=== PATIENT | female | born 1975 | race Caucasian/White ===

== ENCOUNTER → 2017-01-04 | Outpatient (CLI) | payer BC ==
[2017-01-04 10:42] LABS: CH 32.9; CHCM 35.3; HCT 41.7 % (34.0-46.0); HDW 2.72; HGB 14.2 gm/dL (11.4-16.0); MCH 31.8 pg (25.0-35.0); MCHC 34.1 g/dL (31.0-37.0); MCV 93.5 fL (80.0-100.0); Mean Platelet Volume 6.6; RBC 4.46 m/uL (3.80-5.40); RDW 12.6 % (11.5-15.5); WBC 6.4 k/uL (3.8-10.6)
[2017-01-04 11:13] LABS: ALT 37 U/L (9-52); AST 25 U/L (14-36); Alkaline Phosphatase 88 U/L (38-126); Anion Gap 9 mmol/L; Blood Urea Nitrogen 11 mg/dL (7-17); Calcium 9.2 mg/dL (8.4-10.2); Carbon Dioxide 23 mmol/L (22-30); Chloride 109 mmol/L (98-107); Cholesterol 177 mg/dL (<200); Glucose 88 mg/dL (74-99); HDL Cholesterol 54 mg/dL (40-60); Non-African American GFR(MDRD) >60 (>60 ml/min/1.73 sqM); Sodium 141 mmol/L (137-145); Total Bilirubin 0.8 mg/dL (0.2-1.3); Total Protein 7.2 g/dL (6.3-8.2); Triglycerides 165 mg/dL (<150)
== END ==
LOC: LABWHC1 09:50
PROVIDERS: ATTEND Physician Assistant Medical
DX: E03.9 Hypothyroidism, unspecified (principal); E55.9 Vitamin D deficiency, unspecified
CPT/HCPCS: 36415; 80053; 80061; 82306; 84439; 84443; 85027

== ENCOUNTER → 2017-01-08 | Outpatient (CLI) | payer BC ==
--- NOTE | 2017-01-09 12:55 | MM ---
Reason for exam: screening (asymptomatic). Last mammogram was performed 1 year and 6 months ago. History: Excisional biopsy of the right breast. Took hormonal contraceptives for 4 years. Physical Findings: A clinical breast exam by your physician is recommended on an annual basis and results should be correlated with mammographic findings. MG Screening Mammo w CAD Bilateral CC, MLO, and XCCL view(s) were taken. Prior study comparison: July 12, 2015, bilateral MG screening mammo w CAD. The breast tissue is extremely dense which could obscure a lesion on mammography. Stable distortion in the right CC view. No significant changes when compared with prior studies. ASSESSMENT: Benign, BI-RAD 2 RECOMMENDATION: Routine screening mammogram of both breasts in 1 year.
== END | disposition home or self-care (01) ==
LOC: RADMAMWWP 15:33
PROVIDERS: ATTEND Family Medicine
DX: Z12.31 Encounter for screening mammogram for malignant neoplasm of breast (principal)

== ENCOUNTER → 2017-07-30 | Outpatient (CLI) | payer BC ==
--- NOTE | 2017-07-30 10:59 | USB ---
Reason for exam: clinical finding. History: Excisional biopsy of the right breast. Took hormonal contraceptives for 4 years. Indicated problem(s): pain in both breasts. Physical Findings: Nurse did not find any significant physical abnormalities on exam. US Breast BILAT Right breast ultrasound includes all four quadrants, the retroareolar region and axilla. Finding demonstrates a 0.5 x 0.3 x 0.2cm oval, mixed lesion at 3 o'clock, a 0.7 x 0.4 x 0.3cm oval, mixed lesion at 3 o'clock (probably benign), a 0.5 x 0.4 x 0.2cm oval, mixed lesion at 10 o'clock, a 0.6 x 0.5 x 0.4cm oval, mixed lesion at 10 o'clock, a 0.4 x 0.5 x 0.3cm oval, mixed lesion at 10 o'clock and a 0.6 x 0.7 x 0.4cm oval, cystic lesion at 11 o'clock. Left breast ultrasound includes all four quadrants, the retroareolar region and axilla. Finding demonstrates a 0.4 x 0.5 x 0.2cm oval, cystic lesion at 12 o'clock, a 1.1 x 0.5 x 0.3cm oval, cystic cluster at 1 o'clock, a 0.3 x 0.4 x 0.3cm oval, cystic lesion at 1 o'clock, a 0.5 x 0.7 x 0.4cm oval, mixed cluster at 4 o'clock, a 0.4 x 0.6 x 0.2cm oval, mixed lesion at 6 o'clock, a 0.3 x 0.6 x 0.3cm oval, mixed lesion at 9 o'clock, a 0.5 x 0.6 x 0.3cm cystic lesion at 11 o'clock and ductal ectasia. The remaining masses are cystic and benign in both breasts. These results were verbally communicated with the patient and result sheet given to the patient on 07/30/17. ASSESSMENT: Probably benign, BI-RAD 3 RECOMMENDATION: Ultrasound of the right breast in 6 months. (3 o'clock)
== END | disposition home or self-care (01) ==
LOC: RADUSWWP 08:55
PROVIDERS: ATTEND Family Medicine
DX: N64.4 Mastodynia (principal); N63.0 Unspecified lump in unspecified breast

== ENCOUNTER → 2017-08-21 | Outpatient (CLI) | payer OTHER ==
--- NOTE | 2017-08-21 14:33 | XR ---
EXAMINATION TYPE: XR ankle complete LT, XR foot complete LT DATE OF EXAM: 08/21/2017 CLINICAL HISTORY: Contusion injury with pain. TECHNIQUE: Frontal, lateral and oblique images of the left ankle and foot are obtained. COMPARISON: None. FINDINGS: There is no acute fracture/dislocation evident in the left ankle. The ankle mortise appea rs within normal limits. Tiny spur medial malleolus is seen. Tubular density medial soft tissue is fe lt to reflect varicose vein. Mild to moderate diffuse subcutaneous edema is present. There is no acute fracture or dislocation evident in the left foot. Moderate to large size inferior c alcaneal spur is present. Flexion in the third through fifth toes is seen. Overlying soft tissue is u nremarkable. IMPRESSION: There is no acute fracture or dislocation in the left ankle or foot.
== END | disposition home or self-care (01) ==
LOC: RADXRMAIN 14:08
PROVIDERS: ATTEND Emergency Medicine
DX: S90.02XA Contusion of left ankle, initial encounter (principal); S90.32XA Contusion of left foot, initial encounter

== ENCOUNTER → 2018-01-15 | Outpatient (CLI) | payer BC ==
[2018-01-15 09:14] LABS: ALT 36 U/L (9-52); AST 22 U/L (14-36); Alkaline Phosphatase 78 U/L (38-126); Anion Gap 10 mmol/L; Blood Urea Nitrogen 14 mg/dL (7-17); Calcium 9.3 mg/dL (8.4-10.2); Carbon Dioxide 24 mmol/L (22-30); Chloride 105 mmol/L (98-107); Glucose 85 mg/dL (74-99); Potassium 4.4 mmol/L (3.5-5.1); Sodium 139 mmol/L (137-145); Total Bilirubin 0.5 mg/dL (0.2-1.3); Total Protein 6.5 g/dL (6.3-8.2); Uric Acid 3.3 mg/dL (3.7-7.4)
[2018-01-15 09:27] LABS: T4, Free (Free Thyroxine) 0.95 ng/dL (0.78-2.19)
== END | disposition home or self-care (01) ==
LOC: LABWHC1 07:59
PROVIDERS: ATTEND Family Medicine
DX: E03.9 Hypothyroidism, unspecified (principal)
CPT/HCPCS: 36415; 80053; 84439; 84443; 84550

== ENCOUNTER → 2018-02-05 | Outpatient (CLI) | payer BC ==
--- NOTE | 2018-02-05 12:03 | MM ---
Reason for exam: screening (asymptomatic). Last mammogram was performed 1 year and 1 month ago. History: Excisional biopsy of the right breast. Took hormonal contraceptives for 4 years. MG 3D Screening Mammo W/Cad Bilateral CC and MLO view(s) were taken. Technologist: RT Elinor (R)(M) Prior study comparison: January 08, 2017, bilateral MG screening mammo w CAD. July 12, 2015, bilateral MG screening mammo w CAD. The breast tissue is heterogeneously dense. This may lower the sensitivity of mammography. Stable architectural distortion right CC view from prior excision. No significant new findings when compared with previous films. These results were verbally communicated with the patient and result sheet given to the patient on 02/05/18. ASSESSMENT: Incomplete: need additional imaging evaluation, BI-RAD 0 RECOMMENDATION: Ultrasound of the right breast. (follow up from 6 months ago)
--- NOTE | 2018-02-05 12:07 | USB ---
Reason for exam: follow-up at short interval from prior study. History: Excisional biopsy of the right breast. Took hormonal contraceptives for 4 years. Physical Findings: Nurse Summary: Patient complains of intermittent bilateral beast pain x 1 year (nurse mj). US Breast RT Right complete breast ultrasound includes all four quadrants, the retroareolar region and axilla. Finding demonstrates a 0.5 x 0.6 x 0.3cm cystic lesion at 5 o'clock and a 0.6 x 0.5 x 0.4cm mixed lesion at 8 o'clock, not clearly seen previously on 07/30/17, 6 month follow up recommended. It may correspond to a finding at the 10 o'clock position. The previously questioned 3 o'clock lesion is no longer seen. These results were verbally communicated with the patient and result sheet given to the patient on 02/05/18. ASSESSMENT: Probably benign, BI-RAD 3 RECOMMENDATION: Ultrasound of the right breast in 6 months. (for the 8 o'clock mixed lesion)
== END | disposition home or self-care (01) ==
LOC: RADUSWWP 09:49
PROVIDERS: ATTEND Family Medicine
DX: Z12.31 Encounter for screening mammogram for malignant neoplasm of breast (principal); N64.4 Mastodynia
CPT/HCPCS: 77063; 77067

== ENCOUNTER → 2018-08-22 | Outpatient (CLI) | payer BC ==
[2018-08-22 09:52] LABS: Basophils % (A) 0 %; Eosinophils # (A) 0.3 k/uL (0-0.7); Eosinophils % (A) 4 %; HCT 39.8 % (34.0-46.0); HGB 13.5 gm/dL (11.4-16.0); Lymphocytes # (A) 1.8 k/uL (1.0-4.8); Lymphocytes % (A) 27 %; MCH 31.4 pg (25.0-35.0); MCHC 33.8 g/dL (31.0-37.0); MCV 92.8 fL (80.0-100.0); Mean Platelet Volume 7.3; Monocytes # (A) 0.4 k/uL (0-1.0); Monocytes % (A) 7 %; Neutrophils # (A) 3.9 k/uL (1.3-7.7); Neutrophils % (A) 59 %; Platelet Count 212 k/uL (150-450); RBC 4.28 m/uL (3.80-5.40); RDW 12.5 % (11.5-15.5); WBC 6.5 k/uL (3.8-10.6)
[2018-08-22 16:13] LABS: Albumin/Globulin Ratio 2.11 (1.20-2.10); Anion Gap 6.3 mmol/L (4.00-12.00); Calcium 8.9 mg/dL (8.7-10.3); Carbon Dioxide 26.7 mmol/L (21.6-31.8); Globulin 1.9 g/dL (1.6-3.3); LDL Cholesterol,Calculated 64.8 mg/dL (0.0-131.0); Potassium 4.4 mmol/L (3.5-5.5); Total Bilirubin 0.4 mg/dL (0.2-1.2); Total Protein 5.9 g/dL (6.2-8.2); VLDL Calculation 24.2 mg/dL (5.00-40.00)
[2018-08-22 16:22] LABS: T4, Free (Free Thyroxine) 1.2 ng/dL (0.80-1.80)
== END ==
LOC: LABWHC1 09:14
PROVIDERS: ATTEND Family Medicine
DX: E03.9 Hypothyroidism, unspecified (principal)
CPT/HCPCS: 36415; 80053; 80061; 84439; 84443; 85025

== ENCOUNTER → 2018-09-03 | Outpatient (CLI) | payer BC ==
--- NOTE | 2018-09-03 14:57 | US ---
EXAMINATION TYPE: US venous doppler duplex LE DATE OF EXAM: 09/03/2018 2:44 PM COMPARISON: NONE CLINICAL HISTORY: R60.0 EDEMA. Edema and discoloration bilateral lower legs. Varicose veins SIDE PERFORMED: bilateral TECHNIQUE: The lower extremity deep venous system is examined utilizing real time linear array sonog ty with graded compression, doppler sonography and color-flow sonography. VESSELS IMAGED: External Iliac Vein (EIV) Common Femoral Vein Deep Femoral Vein Greater Saphenous Vein * Femoral Vein Popliteal Vein Small Saphenous Vein * Proximal Calf Veins (* superficial vessels) Right Leg: No evidence of DVT Left Leg: No evidence of DVT IMPRESSION: No evidence for DVT at this time.
--- NOTE | 2018-09-04 08:55 | USB ---
Reason for exam: follow-up at short interval from prior study. History: Excisional biopsy of the right breast. Took hormonal contraceptives for 4 years. Physical Findings: Nurse Summary: Patient complains of intermittent bilateral breast pain, nodular, movable (nurse mj). US Breast RT Right complete breast ultrasound includes all four quadrants, the retroareolar region and axilla. Finding demonstrates a 0.3 x 0.3 x 0.7cm cystic lesion at 12 o'clock, a 0.4 x 0.2 x 0.5cm cystic lesion at 5 o'clock and a 0.6 x 0.3 x 0.4cm mixed lesion at 8 o'clock. These results were verbally communicated with the patient and result sheet given to the patient on 09/03/18. ASSESSMENT: Probably benign, BI-RAD 3 RECOMMENDATION: Follow-up diagnostic mammogram of both breasts in 6 months. Ultrasound of the right breast in 6 months.
== END | disposition home or self-care (01) ==
LOC: RADUSWWP 14:13
PROVIDERS: ATTEND Family Medicine
DX: R60.0 Localized edema (principal); R23.4 Changes in skin texture
CPT/HCPCS: 93970

== ENCOUNTER → 2019-05-01 | Outpatient (CLI) | payer BC ==
--- NOTE | 2019-05-01 14:53 | MM ---
Reason for exam: additional evaluation requested from prior study. Last mammogram was performed 1 year and 3 months ago. History: Excisional biopsy of the right breast. Took hormonal contraceptives for 4 years. Physical Findings: Nurse did not find any significant physical abnormalities on exam. MG 3D Diag Mammo W/Cad WEN Bilateral CC and MLO view(s) were taken. Prior study comparison: February 05, 2018, bilateral MG 3d screening mammo w/cad. January 08, 2017, bilateral MG screening mammo w CAD. The breast tissue is heterogeneously dense. This may lower the sensitivity of mammography. No suspicious abnormality. Post surgical change on the right. These results were verbally communicated with the patient and result sheet given to the patient on 05/01/19. ASSESSMENT: Benign, BI-RAD 2 RECOMMENDATION: Follow-up diagnostic mammogram of both breasts in 1 year.
--- NOTE | 2019-05-01 14:56 | USB ---
Reason for exam: additional evaluation requested from prior study. History: Excisional biopsy of the right breast. Took hormonal contraceptives for 4 years. US Breast RT Right complete breast ultrasound includes all four quadrants, the retroareolar region and axilla. Finding demonstrates a 0.5 x 0.3 x 0.6cm cystic lesion at 12 o'clock (prior 0.6 x 0.3 x 0.7cm), a 0.4 x 0.3 x 0.4cm cystic lesion at 1 o'clock, new from most recent but seen on 07/30/17, similar in size, a 0.6 x 0.3 x 0.6cm cystic, new lesion at 4 o'clock, a 0.4 x 0.3 x 0.5cm cystic lesion at 5 o'clock (prior 0.4 x 0.2 x 0.5cm) and a 0.4 x 0.3 x 0.4cm lesion too small to characterize at 8 o'clock. These results were verbally communicated with the patient and result sheet given to the patient on 05/01/19. ASSESSMENT: Probably benign, BI-RAD 3 RECOMMENDATION: Ultrasound of the right breast in 1 year.
== END | disposition home or self-care (01) ==
LOC: RADMAMWWP 07:30
PROVIDERS: ATTEND Family Medicine
DX: R92.8 Other abnormal and inconclusive findings on diagnostic imaging of breast (principal); N64.4 Mastodynia
CPT/HCPCS: 77062; 77066

== ENCOUNTER → 2020-08-04 | Outpatient (CLI) | payer BC ==
--- NOTE | 2020-08-05 11:20 | MM ---
Reason for exam: additional evaluation requested from prior study. Last mammogram was performed 1 year and 3 months ago. History: Excisional biopsy of the right breast. Took hormonal contraceptives for 4 years. Physical Findings: Nurse did not find any significant physical abnormalities on exam. MG 3D Diag Mammo W/Cad WEN Bilateral CC and MLO view(s) were taken. Prior study comparison: May 01, 2019, bilateral MG 3d diag mammo w/cad WEN. February 05, 2018, bilateral MG 3d screening mammo w/cad. January 08, 2017, bilateral MG screening mammo w CAD. The breast tissue is extremely dense which could obscure a lesion on mammography. No significant new findings when compared with previous films. These results were verbally communicated with the patient and result sheet given to the patient on 08/04/20. ASSESSMENT: Benign, BI-RAD 2 RECOMMENDATION: Routine screening mammogram of both breasts in 1 year.
--- NOTE | 2020-08-05 11:21 | USB ---
Reason for exam: additional evaluation requested from prior study. History: Excisional biopsy of the right breast. Took hormonal contraceptives for 4 years. US Breast RT Right complete breast ultrasound includes all four quadrants, the retroareolar region and axilla. Finding demonstrates three oval, cystic lesions measuring 4 x 3 x 6mm at 12 o'clock, 4 x 2 x 4mm at 2 o'clock and 6 x 4 x 6mm at 9 o'clock. These results were verbally communicated with the patient and result sheet given to the patient on 08/04/20. ASSESSMENT: Benign, BI-RAD 2 RECOMMENDATION: Routine screening mammogram of both breasts in 1 year.
== END | disposition home or self-care (01) ==
LOC: RADMAMWWP 14:19
PROVIDERS: ATTEND Family Medicine
DX: N63.10 Unspecified lump in the right breast, unspecified quadrant (principal); R92.0 Mammographic microcalcification found on diagnostic imaging of breast; R92.8 Other abnormal and inconclusive findings on diagnostic imaging of breast
CPT/HCPCS: 77062; 77066

== ENCOUNTER → 2021-01-05 | Outpatient (CLI) | payer BC ==
[2021-01-05 15:56] LABS: HCT 40.2 % (37.2-46.3); HGB 13.2 g/dL (12.0-15.0); MCH 30.8 pg (27.0-32.0); MCHC 32.8 g/dL (32.0-37.0); MCV 93.9 fL (80.0-97.0); Platelet Count 194 X 10*3/uL (140-440); RBC 4.28 X 10*6/uL (4.10-5.20); RDW 12.6 % (11.5-14.5); WBC 4.87 X 10*3/uL (4.50-10.00)
[2021-01-05 18:33] LABS: African American GFR (CKD) 126.7 (60.0-200.0); Albumin 4.1 g/dL (3.80-4.90); Albumin/Globulin Ratio 1.78 (1.60-3.17); Anion Gap 7.5 mmol/L (4.00-12.00); BUN/Creat Ratio 23.33 Ratio (12.00-20.00); Calcium 8.5 mg/dL (8.7-10.3); Carbon Dioxide 20.5 mmol/L (21.6-31.8); Chol/HDL Ratio 3.49; Globulin 2.3 g/dL (1.6-3.3); LDL Cholesterol,Calculated 85.6 mg/dL (0.0-131.0); Non-African American GFR(CKD) 109.3 (60.0-200.0); Potassium 4.2 mmol/L (3.5-5.5); Total Bilirubin 0.4 mg/dL (0.3-1.2); Total Protein 6.4 g/dL (6.2-8.2); VLDL Calculation 21.4 mg/dL (5.00-40.00)
== END | disposition home or self-care (01) ==
LOC: LABWHC1 08:22
PROVIDERS: ATTEND Family Medicine
DX: E03.9 Hypothyroidism, unspecified (principal); M79.7 Fibromyalgia; E66.3 Overweight
CPT/HCPCS: 36415; 80053; 80061; 84443; 85027

== ENCOUNTER → 2021-05-11 | Outpatient (CLI) | payer BC ==
[2021-05-11 23:54] LABS: HCT 39.1 % (37.2-46.3); HGB 13.5 g/dL (12.0-15.0); MCH 31.5 pg (27.0-32.0); MCHC 34.5 g/dL (32.0-37.0); MCV 91.4 fL (80.0-97.0); Mean Platelet Volume 10.3 fL (9.5-12.2); Platelet Count 233 X 10*3/uL (140-440); RBC 4.28 X 10*6/uL (4.10-5.20); RDW 12.1 % (11.5-14.5)
[2021-05-12 05:24] LABS: African American GFR (CKD) 104.9 (60.0-200.0); Albumin 4.4 g/dL (3.8-4.9); Albumin/Globulin Ratio 1.96 (1.60-3.17); Anion Gap 18.5 mmol/L (4.00-12.00); BUN/Creat Ratio 18.85 Ratio (12.00-20.00); Blood Urea Nitrogen 14.7 mg/dL (9.0-27.0); Calcium 9.4 mg/dL (8.7-10.3); Carbon Dioxide 15.5 mmol/L (21.6-31.8); Globulin 2.3 g/dL (1.6-3.3); Non-African American GFR(CKD) 90.5 (60.0-200.0); Potassium 4.2 mmol/L (3.5-5.5); T4, Free (Free Thyroxine) 1.55 ng/dL (0.800-1.800); Total Bilirubin 0.3 mg/dL (0.30-1.20); Total Protein 6.7 g/dL (6.2-8.2)
== END | disposition home or self-care (01) ==
LOC: LABWHC1 15:52
PROVIDERS: ATTEND Family Medicine
DX: E03.9 Hypothyroidism, unspecified (principal); M79.7 Fibromyalgia
CPT/HCPCS: 36415; 80053; 84439; 84443; 84480; 85027

== ENCOUNTER 2021-09-22 22:52 | Emergency (ER) | payer BC ==
[2021-09-22] MEDS ORDERED: IBUPROFEN 800 MG TAB PO STA (23:30)
[2021-09-22] MEDS ORDERED: ACETAMINOPHEN TAB 500 MG TAB PO STA (23:30)
[2021-09-22] MEDS ORDERED: ONDANSETRON 4 MG/2 ML VIAL IVP STA (23:30)
[2021-09-22] MEDS ORDERED: SODIUM CHLORIDE 0.9% 1,000 ML IV STA ×2 (23:30)
[2021-09-22] MEDS ORDERED: HYDROmorphone 1 MG/ML 1 ML SYRINGE IVP STA (23:31)
--- NOTE | 2021-09-23 00:18 | ED ---
Abdominal Pain HPI - General Chief Complaint: Abdominal Pain Stated Complaint: rash on leg, abdominal pain Time Seen by Provider: 09/22/21 23:30 Source: patient, family, RN notes reviewed, old records reviewed Mode of arrival: ambulatory Limitations: no limitations - History of Present Illness Initial Comments: This is a 46-year-old female DEL with multiple complaints abdominal pain some nausea no vomiting abdominal pain to her back as well as right lower extremity pain and swelling erythema edema and drainage. Patient believes it down pain feels a prior episodes of pancreatitis. Patient has presenting to the ER with fever as well. MD Complaint: abdominal pain, other (Right leg pain secondary to rash) -: days(s) (2) Location: diffuse Radiation: LUQ, RUQ, epigastric Migration to: bilateral flank Severity: moderate Severity scale (1-10): 5 Quality: fullness, sharp Consistency: constant Improves With: nothing Worsens With: nothing Context: other (none) Associated Symptoms: nausea Treatments Prior to Arrival: other (none) - Related Data Home Medications Medication Instructions Recorded Confirmed Levothyroxine Sodium [Synthroid] 112 mcg PO DAILY 07/13/15 09/22/15 Previous Rx's Medication Instructions Recorded Cephalexin [Keflex] 500 mg PO Q6HR #40 cap 09/23/21 Allergies Allergy/AdvReac Type Severity Reaction Status Date / Time meperidine HCl [From Demerol] Allergy Rash/Hives Verified 09/22/21 23:01 milk Allergy Unknown Verified 09/22/21 23:01 morphine Allergy Unknown Verified 09/22/21 23:01 Penicillins Allergy throat Verified 09/22/21 23:01 Swelling Review of Systems ROS Statement: Those systems with pertinent positive or pertinent negative responses have been documented in the HPI. ROS Other: All systems not noted in ROS Statement are negative. Past Medical History Past Medical History: No Reported History Additional Past Medical History / Comment(s): pancreatitis, skin problem left lower leg History of Any Multi-Drug Resistant Organisms: None Reported Additional Past Surgical History / Comment(s): surgery on pancreas(sphincter of Oddi), deviated septum/removal of cysts, breast biopsy, [facility] PROCEDURE 07/19/15 Past Anesthesia/Blood Transfusion Reactions: Motion Sickness Past Psychological History: No Psychological Hx Reported Smoking Status: Never smoker Past Alcohol Use History: None Reported Past Drug Use History: None Reported General Exam Limitations: no limitations General appearance: alert, in no apparent distress, anxious Head exam: Present: atraumatic, normocephalic, normal inspection Eye exam: Present: normal appearance, PERRL, EOMI. Absent: scleral icterus, conjunctival injection, periorbital swelling ENT exam: Present: normal exam, mucous membranes moist Neck exam: Present: normal inspection. Absent: tenderness, meningismus, lymphadenopathy Respiratory exam: Present: normal lung sounds bilaterally. Absent: respiratory distress, wheezes, rales, rhonchi, stridor Cardiovascular Exam: Present: normal rhythm, tachycardia, normal heart sounds. Absent: systolic murmur, diastolic murmur, rubs, gallop, clicks GI/Abdominal exam: Present: soft, tenderness, guarding, normal bowel sounds. Absent: distended, rebound, rigid Extremities exam: Present: normal inspection, full ROM, normal capillary refill. Absent: tenderness, pedal edema, joint swelling, calf tenderness Back exam: Present: normal inspection Neurological exam: Present: alert, oriented X3, CN II-XII intact Psychiatric exam: Present: normal affect, normal mood Skin exam: Present: warm, dry, intact, normal color. Absent: rash Course Vital Signs 09/22/21 22:58 Temperature 101 F H Pulse Rate 117 H Respiratory 22 Rate Blood Pressure 114/73 O2 Sat by Pulse 98 Oximetry - Reevaluation(s) Reevaluation #1: 09/23/21 03:22 Medical record is reviewed Reevaluation #2: 09/23/21 03:37 Patient informed results and questions have been answered Reevaluation #3: 09/23/21 03:37 Patient states of dull pain is coming back a little she feels improved and would like to go home Medical Decision Making - Medical Decision Making 46 female to the emergency. Patient coming in with complaints of abdominal pain right lower extremity swelling redness and then. Edema. Patient has pain in that right lower extremity with significant cellulitis drainage, patient replacement antibiotics encouraged wound care and fever control. Abdominal pain no cause found currently and patient can be discharged home - Lab Data Result diagrams: 09/23/21 00:49 09/23/21 00:49 Lab Results 09/23/21 09/23/21 09/23/21 Range/Units 00:49 00:49 00:49 WBC 4.2 (3.8-10.6) k/uL RBC 4.25 (3.80-5.40) m/uL Hgb 13.6 (11.4-16.0) gm/dL Hct 38.8 (34.0-46.0) % MCV 91.2 (80.0-100.0) fL MCH 31.9 (25.0-35.0) pg MCHC 35.0 (31.0-37.0) g/dL RDW 12.8 (11.5-15.5) % Plt Count 228 (150-450) k/uL MPV 7.1 Neutrophils % 69 % Lymphocytes % 13 % Monocytes % 13 % Eosinophils % 1 % Basophils % 0 % Neutrophils # 2.9 (1.3-7.7) k/uL Lymphocytes # 0.6 L (1.0-4.8) k/uL Monocytes # 0.6 (0-1.0) k/uL Eosinophils # 0.1 (0-0.7) k/uL Basophils # 0.0 (0-0.2) k/uL PT 10.0 (9.0-12.0) sec INR 0.9 (<1.2) APTT 24.7 (22.0-30.0) sec Sodium 135 L (137-145) mmol/L Potassium 3.9 (3.5-5.1) mmol/L Chloride 104 (98-107) mmol/L Carbon Dioxide 22 (22-30) mmol/L Anion Gap 9 mmol/L BUN 15 (7-17) mg/dL Creatinine 0.61 (0.52-1.04) mg/dL Est GFR (CKD-EPI)AfAm >90 (>60 ml/min/1.73 sqM) Est GFR (CKD-EPI)NonAf >90 (>60 ml/min/1.73 sqM) Glucose 120 H (74-99) mg/dL Calcium 8.2 L (8.4-10.2) mg/dL Total Bilirubin 1.1 (0.2-1.3) mg/dL AST 33 (14-36) U/L ALT 22 (4-34) U/L Alkaline Phosphatase 76 (38-126) U/L Total Protein 6.3 (6.3-8.2) g/dL Albumin 3.6 (3.5-5.0) g/dL Amylase 36 (30-110) U/L Lipase 26 (23-300) U/L Urine Color Urine Appearance (Clear) Urine pH (5.0-8.0) Ur Specific Stafford (1.001-1.035) Urine Protein (Negative) Urine Glucose (UA) (Negative) Urine Ketones (Negative) Urine Blood (Negative) Urine Nitrite (Negative) Urine Bilirubin (Negative) Urine Urobilinogen (<2.0) mg/dL Ur Leukocyte Esterase (Negative) Urine WBC (0-5) /hpf Ur Squamous Epith Cells (0-4) /hpf Amorphous Sediment (None) /hpf Urine Bacteria (None) /hpf Urine Mucus (None) /hpf 09/23/21 Range/Units 01:28 WBC (3.8-10.6) k/uL RBC (3.80-5.40) m/uL Hgb (11.4-16.0) gm/dL Hct (34.0-46.0) % MCV (80.0-100.0) fL MCH (25.0-35.0) pg MCHC (31.0-37.0) g/dL RDW (11.5-15.5) % Plt Count (150-450) k/uL MPV Neutrophils % % Lymphocytes % % Monocytes % % Eosinophils % % Basophils % % Neutrophils # (1.3-7.7) k/uL Lymphocytes # (1.0-4.8) k/uL Monocytes # (0-1.0) k/uL Eosinophils # (0-0.7) k/uL Basophils # (0-0.2) k/uL PT (9.0-12.0) sec INR (<1.2) APTT (22.0-30.0) sec Sodium (137-145) mmol/L Potassium (3.5-5.1) mmol/L Chloride (98-107) mmol/L Carbon Dioxide (22-30) mmol/L Anion Gap mmol/L BUN (7-17) mg/dL Creatinine (0.52-1.04) mg/dL Est GFR (CKD-EPI)AfAm (>60 ml/min/1.73 sqM) Est GFR (CKD-EPI)NonAf (>60 ml/min/1.73 sqM) Glucose (74-99) mg/dL Calcium (8.4-10.2) mg/dL Total Bilirubin (0.2-1.3) mg/dL AST (14-36) U/L ALT (4-34) U/L Alkaline Phosphatase (38-126) U/L Total Protein (6.3-8.2) g/dL Albumin (3.5-5.0) g/dL Amylase (30-110) U/L Lipase (23-300) U/L Urine Color Yellow Urine Appearance Cloudy H (Clear) Urine pH 5.5 (5.0-8.0) Ur Specific Stafford 1.048 H (1.001-1.035) Urine Protein 1+ H (Negative) Urine Glucose (UA) Negative (Negative) Urine Ketones Negative (Negative) Urine Blood Negative (Negative) Urine Nitrite Negative (Negative) Urine Bilirubin Negative (Negative) Urine Urobilinogen <2.0 (<2.0) mg/dL Ur Leukocyte Esterase Negative (Negative) Urine WBC 3 (0-5) /hpf Ur Squamous Epith Cells 6 H (0-4) /hpf Amorphous Sediment Occasional H (None) /hpf Urine Bacteria Rare H (None) /hpf Urine Mucus Moderate H (None) /hpf - Radiology Data Radiology results: report reviewed (CT of the abdomen and pelvis is negative for acute disease), image reviewed Disposition Clinical Impression: Cellulitis of right leg, Fever, Abdominal colic Disposition: ADMITTED IP TO THIS [facility] Condition: Good Instructions (If sedation given, give patient instructions): Fever in Adults (ED), Cellulitis (ED), Abdominal Pain (ED) Prescriptions: Cephalexin [Keflex] 500 mg PO Q6HR #40 cap Is patient prescribed a controlled substance at d/c from ED?: No Referrals: Chito Witt MD [Primary Care Provider] - 1-2 days
[2021-09-23 01:24] LABS: ALT 22 U/L (4-34); African American GFR (CKD) >90 (>60 ml/min/1.73 sqM); Albumin 3.6 g/dL (3.5-5.0); Amylase 36 U/L (30-110); Anion Gap 9 mmol/L; Blood Urea Nitrogen 15 mg/dL (7-17); Calcium 8.2 mg/dL (8.4-10.2); Carbon Dioxide 22 mmol/L (22-30); Chloride 104 mmol/L (98-107); Glucose 120 mg/dL (74-99); Lipase 26 U/L (23-300); Non-African American GFR(CKD) >90 (>60 ml/min/1.73 sqM); Sodium 135 mmol/L (137-145); Total Bilirubin 1.1 mg/dL (0.2-1.3); Total Protein 6.3 g/dL (6.3-8.2)
[2021-09-23 01:25] LABS: AST 33 U/L (14-36); Alkaline Phosphatase 76 U/L (38-126); Potassium 3.9 mmol/L (3.5-5.1)
[2021-09-23 01:35] LABS: INR 0.9 (<1.2); Partial Thromboplastin Time 24.7 sec (22.0-30.0)
[2021-09-23 01:41] LABS: Basophils % (A) 0 %; Eosinophils # (A) 0.1 k/uL (0-0.7); Eosinophils % (A) 1 %; HCT 38.8 % (34.0-46.0); HGB 13.6 gm/dL (11.4-16.0); Lymphocytes # (A) 0.6 k/uL (1.0-4.8); Lymphocytes % (A) 13 %; MCH 31.9 pg (25.0-35.0); MCV 91.2 fL (80.0-100.0); Mean Platelet Volume 7.1; Monocytes # (A) 0.6 k/uL (0-1.0); Monocytes % (A) 13 %; Neutrophils # (A) 2.9 k/uL (1.3-7.7); Neutrophils % (A) 69 %; Platelet Count 228 k/uL (150-450); RBC 4.25 m/uL (3.80-5.40); RDW 12.8 % (11.5-15.5); WBC 4.2 k/uL (3.8-10.6)
--- NOTE | 2021-09-23 01:46 | CT ---
EXAMINATION TYPE: CT abdomen pelvis w con DATE OF EXAM: 09/23/2021 COMPARISON: None HISTORY: generalized abdominal pain CT DLP: 1158.3 mGycm Automated exposure control for dose reduction was used. CONTRAST: Performed with IV Contrast, patient injected with 100ml mL of Isovue 300. Images obtained from the diaphragm to the floor the pelvis with IV contrast. The lung bases are clear. There is no pleural effusion. Heart size is normal. There is no pericardial effusion. There is 1.5 cm cyst anterior liver. There are other smaller cysts less than 1 cm. There are clips fr om cholecystectomy. Spleen appears normal. The stomach is intact. There is no evidence of pancreatic mass. There is no adrenal mass. Kidneys show satisfactory contrast opacification. There is no hydronephrosi s. Ureters are not dilated. There is no retroperitoneal adenopathy. Uterus is anteverted. Bladder dis tends smoothly. There is no inguinal hernia. There is no free fluid in the pelvis. There is no pelvic mass. Appendix is posterior and appears normal. There is large bowel fluid down to the rectum. There is no mesenteric edema. There is no ascites or free air. There is no bowel obstruction. The lumbar vertebrae have normal alignment. Disc spaces are normal. There is no compression fracture. The bony pelvis appears intact. The hip joints are intact. IMPRESSION: There are small hepatic cysts. No dilated ducts. Normal appendix. There is large bowel flow down to the rectum that is suggestive of some degree of diarrhea.
[2021-09-23 02:35] LABS: Amorphous Sediment,Urine Occasional /hpf; Appearance,Urine Cloudy (Clear); Bacteria,Urine Rare /hpf; Bilirubin,Urine Negative (Negative); Blood,Urine Negative (Negative); Color,Urine Yellow; Glucose,Urine (UA) Negative (Negative); Ketones,Urine Negative (Negative); Leukocyte Esterase,Urine Negative (Negative); Mucus,Urine Moderate /hpf; Nitrite,Urine Negative (Negative); PH, Urine 5.5 (5.0-8.0); Protein,Urine 1+ (Negative); Squamous Epithelial Cell,Urine 6 /hpf (0-4); Urobilinogen,Urine <2.0 mg/dL (<2.0); WBC,Urine 3 /hpf (0-5)
[2021-09-23 03:14] LABS: Specific Gravity,Urine 1.048 (1.001-1.035)
[2021-09-23] MEDS ORDERED: IBUPROFEN 600 MG STARTER PACK 4 TAB BTL PO STA (03:16)
[2021-09-23] MEDS ORDERED: ACET/COD 300 MG/30 MG STARTER PACK 6 TAB BTL PO STA (03:16)
[2021-09-23] MEDS ORDERED: CEPHALEXIN 500MG STARTER PACK 4 CAP BTL PO STA (03:16)
[2021-09-23] MEDS ORDERED: ONDANSETRON 4 MG ODT STARTER PACK 2 TAB BTL PO STA (03:16)
[2021-09-23] MEDS ORDERED: HYDROmorphone 1 MG/ML 1 ML SYRINGE IVP STA (03:16)
[2021-09-23 03:42] VITALS: BP 122/72; PULSE 98; RESP 20; TEMP 98.9
== END 2021-09-23 03:41 | disposition home or self-care (01) ==
LOC: EC 22:52
DX: L03.115 Cellulitis of right lower limb (principal); R10.84 Generalized abdominal pain; R10.12 Left upper quadrant pain; R10.11 Right upper quadrant pain; Z88.8 Allergy status to other drugs, medicaments and biological substances; Z91.011 Allergy to milk products; Z88.5 Allergy status to narcotic agent; Z88.0 Allergy status to penicillin
CPT/HCPCS: 36415; 80053; 82150; 83690; 85025; 85610; 85730; 81001; 74177; 99285; 96365; 96375; 96376; 96361; J2405; J0696; J1170; S0119; Q9967

== ENCOUNTER → 2022-02-17 | Outpatient (CLI) | payer BC ==
[2022-02-17 16:59] LABS: HCT 39.2 % (37.2-46.3); HGB 13.2 g/dL (12.0-15.0); MCH 31.5 pg (27.0-32.0); MCHC 33.7 g/dL (32.0-37.0); MCV 93.6 fL (80.0-97.0); NRBC Per 100 WBC 0 /100 WBCS (0.0-0.0); Platelet Count 182 X 10*3/uL (140-440); RBC 4.19 X 10*6/uL (4.10-5.20); RDW 12.2 % (11.5-14.5); WBC 5.93 X 10*3/uL (4.50-10.00)
[2022-02-17 17:15] LABS: ALT 20 U/L (8-44); AST 20 U/L (13-35); African American GFR (CKD) 120.9 (60.0-200.0); Albumin 3.9 g/dL (3.8-4.9); Albumin/Globulin Ratio 1.67 (1.60-3.17); Alkaline Phosphatase 74 U/L (41-126); BUN/Creat Ratio 16.89 Ratio (12.00-20.00); Blood Urea Nitrogen 11.2 mg/dL (9.0-27.0); Calcium 8.8 mg/dL (8.7-10.3); Chloride 106 mmol/L (96-109); Chol/HDL Ratio 3.43 Ratio; Globulin 2.3 g/dL (1.6-3.3); Glucose 99 mg/dL (70-110); LDL Cholesterol,Calculated 60.2 mg/dL (0.0-131.0); Non-African American GFR(CKD) 104.3 (60.0-200.0); Potassium 4.2 mmol/L (3.5-5.5); Sodium 135 mmol/L (135-145); Total Protein 6.2 g/dL (6.2-8.2)
== END | disposition home or self-care (01) ==
LOC: LABWHC1 08:55
PROVIDERS: ATTEND Family Medicine
DX: E03.9 Hypothyroidism, unspecified (principal); K21.9 Gastro-esophageal reflux disease without esophagitis
CPT/HCPCS: 36415; 80053; 80061; 84439; 84443; 84481; 85027

== ENCOUNTER → 2022-04-26 | Outpatient (CLI) | payer BC ==
--- NOTE | 2022-04-27 05:51 | MR ---
MRI CERVICAL SPINE: CLINICAL HISTORY: Headaches and neck pain extending into right shoulder since 2012. Pain and weakness into bilateral arms and fingers per patient. TECHNIQUE: Multiplanar, multisequence imaging of the cervical spine is performed without IV contrast. COMPARISON: None. FINDINGS: Sagittal images of the cervical spine show the craniocervical junction to appear within nor mal limits. The cervical and upper thoracic spinal cord is normal in course, caliber, and signal. V ertebral alignment is anatomic. The vertebral body and intravertebral disk heights are normal. The bone marrow signal intensity is within normal limits. Axial images show C2-C3 level to appear within normal limits. Axial images at C3-C4 level show uncovertebral facet degenerative changes bilaterally causing mild ri ght greater than left bilateral neural foraminal narrowing. Axial images C4-C5 and C5-C6 levels appear within normal limits. Axial images at C6-C7 level shows tiny central disc protrusion minimally effacing anterior thecal sac , patent bilateral neural foramina. Axial images at C7-T1 level appear within normal limits. Thyroid gland grossly unremarkable. IMPRESSION: Mild degenerative changes in the cervical spine as detailed above..
== END | disposition home or self-care (01) ==
LOC: RADMRIMAIN 15:57
PROVIDERS: ATTEND Family Medicine
DX: M50.123 Cervical disc disorder at C6-C7 level with radiculopathy (principal)
CPT/HCPCS: 72141

== ENCOUNTER → 2022-11-21 | Outpatient (CLI) | payer BC ==
--- NOTE | 2022-11-22 19:49 | MM ---
Reason for Exam: Screening (asymptomatic). Last mammogram was performed 2 year(s) and 3 month(s) ago. Patient History: Menarche at age 12. First Full-Term at age 20. Patient used Hormonal Contraceptives for 4 years. Excisional Biopsy on the Right side. Risk Values: Rolanda 5 year model risk: 1.1%. NCI Lifetime model risk: 9.8%. Prior Study Comparison: 02/05/2018 Bilateral Screening Mammogram, [facility]. 05/01/2019 Bilateral Diagnostic Mammogram, [facility]. 08/04/2020 Bilateral Diagnostic Mammogram, [facility]. Tissue Density: The breast tissue is heterogeneously dense. This may lower the sensitivity of mammography. Findings: Analyzed By CAD. Central, inner asymmetric density on the right CC view appears more defined and incompletely disperses on 3-D images. Further evaluation is recommended. Annual nodularity 3:00 left breast middle depth which becomes more apparent on 3-D images. Further evaluation is recommended. Otherwise, no significant change. Overall Assessment: Incomplete: need additional imaging evaluation, BI-RAD 0 Management: Special View Mammogram of both breasts. Diagnostic Breast Ultrasound of both breasts. On the right, ultrasound of the medial half. On the left, ultrasound at approximately the 3:[address] [facility] will attempt to contact patient to return for supplemental views and ultrasound if indicated. Electronically signed and approved by: Delvin Bhakta M.D. Radiologist
== END | disposition home or self-care (01) ==
LOC: RADMAMWWP 13:44
PROVIDERS: ATTEND Family Medicine
DX: Z12.31 Encounter for screening mammogram for malignant neoplasm of breast (principal); Z98.890 Other specified postprocedural states
CPT/HCPCS: 77063; 77067

== ENCOUNTER → 2022-11-28 | Outpatient (CLI) | payer BC ==
--- NOTE | 2022-11-28 10:54 | MM ---
Reason for Exam: Additional evaluation requested from abnormal screening. Last screening mammogram was performed less than 1 month ago. Patient History: Menarche at age 12. First Full-Term at age 20. Patient used Hormonal Contraceptives for 4 years. Excisional Biopsy on the Right side. Last menstrual period: 11/22/2022 Risk Values: Rolanda 5 year model risk: 1.1%. NCI Lifetime model risk: 9.8%. Prior Study Comparison: 08/04/2020 Bilateral Diagnostic Mammogram, [facility]. 11/21/2022 Bilateral MG 3D screening mammo w/cad, [facility]. Tissue Density: The breast tissue is heterogeneously dense. This may lower the sensitivity of mammography. Findings: Analyzed By CAD. A 4 mm nodular asymmetry appears to persist on the spot 3-D CC view right breast inner aspect middle depth. However, the larger area of asymmetric density disperses and the smaller area of nodularity seems to have been present on prior studies. On the left, there is a 9 mm circumscribed isodense to low density mass at 3:00 position, probable cyst. Overall Assessment: Incomplete: need additional imaging evaluation, BI-RAD 0 Management: Diagnostic Breast Ultrasound of both breasts. . Electronically signed and approved by: Delvin Bhakta M.D. Radiologist
--- NOTE | 2022-11-28 10:54 | USB ---
Reason for Exam: Additional evaluation requested from abnormal screening. Patient History: Menarche at age 12. First Full-Term at age 20. Patient used Hormonal Contraceptives for 4 years. Excisional Biopsy on the Right side. Risk Values: Rolanda 5 year model risk: 1.1%. NCI Lifetime model risk: 9.8%. Technique: Method: Targeted. Prior Study Comparison: 05/01/2019 Bilateral Diagnostic Mammogram, [facility]. 08/04/2020 Bilateral Diagnostic Mammogram, [facility]. 11/21/2022 Bilateral MG 3D screening mammo w/cad, [facility]. Findings: The lateral section of the breast of the left breast, the medial section of the breast of the right breast, the axilla of both breasts and the retroareolar of both breasts were scanned. Right: * Targeted ultrasound medial half 12:00 to 6:00 including the subareolar region and axilla. * 4:00 position, 2 cm from nipple, small 4 x 4 by 2 mm cyst. * 1:00 position, 1 cm from the nipple, 5 x 5 x 3 mm benign cyst. * Scattered dense tissues. No other solid or cystic lesion. No axillary lymphadenopathy. Left: * Targeted ultrasound laterally 2-4 o'clock including the subareolar region and axilla. * At the 3:00 position, there is a benign 9 x 7 x 3 mm cyst. * Dense tissue is present throughout. No other solid or cystic lesion or axillary lymphadenopathy. Overall Assessment: Probably benign, BI-RAD 3 Management: Diagnostic Mammogram of both breasts in 6 months. A clinical breast exam by your physician is recommended on an annual basis and results should be correlated with mammographic findings. This exam should not preclude additional follow-up of suspicious palpable abnormalities. Results were given to the patient verbally at the time of exam. Electronically signed and approved by: Delvin Bhakta M.D. Radiologist
== END | disposition home or self-care (01) ==
LOC: RADMAMWWP 09:42
PROVIDERS: ATTEND Family Medicine
DX: R92.8 Other abnormal and inconclusive findings on diagnostic imaging of breast (principal)
CPT/HCPCS: 77062; 77066

== ENCOUNTER → 2023-06-28 | Outpatient (CLI) | payer BC ==
[2023-06-29 02:07] LABS: HCT 40.1 % (37.2-46.3); HGB 13.6 g/dL (12.0-15.0); MCH 31.4 pg (27.0-32.0); MCHC 33.9 g/dL (32.0-37.0); MCV 92.6 FL (80.0-97.0); NRBC Per 100 WBC 0 X 10*3/uL (0.00-0.01); Platelet Count 230 X 10*3/uL (140-440); RBC 4.33 X 10*6/uL (4.10-5.20); WBC 6.09 X 10*3/uL (4.50-10.00)
[2023-06-29 02:54] LABS: ALT 36 U/L (8-44); AST 24 U/L (13-35); Albumin 4.2 g/dL (3.8-4.9); Albumin/Globulin Ratio 1.91 Ratio (1.60-3.17); Alkaline Phosphatase 93 U/L (41-126); BUN/Creat Ratio 25.57 Ratio (12.00-20.00); Blood Urea Nitrogen 17.9 mg/dL (9.0-27.0); Calcium 9.3 mg/dL (8.7-10.3); Carbon Dioxide 23.9 mmol/L (21.6-31.8); Chloride 103 mmol/L (96-109); Chol/HDL Ratio 4.37 Ratio; Globulin 2.2 g/dL (1.6-3.3); Glucose 94 mg/dL (70-110); LDL Cholesterol,Calculated 59.2 mg/dL (0.0-131.0); Potassium 4.1 mmol/L (3.5-5.5); Sodium 136 mmol/L (135-145); Total Bilirubin 0.2 mg/dL (0.3-1.2); Total Protein 6.4 g/dL (6.2-8.2)
== END | disposition home or self-care (01) ==
LOC: LABWHC1 15:02
PROVIDERS: ATTEND Family Medicine
DX: E03.9 Hypothyroidism, unspecified (principal); R73.02 Impaired glucose tolerance (oral); R53.83 Other fatigue
CPT/HCPCS: 36415; 80053; 80061; 83036; 84436; 84443; 84480; 85027

== ENCOUNTER → 2023-07-11 | Outpatient (CLI) | payer BC ==
--- NOTE | 2023-07-11 11:26 | MM ---
Reason for Exam: Follow-up at short interval from prior study. Last screening mammogram was performed 7 month(s) ago. Patient History: Menarche at age 12. First Full-Term at age 20. Patient used Hormonal Contraceptives for 4 years. Excisional Biopsy on the Right side. Risk Values: Rolanda 5 year model risk: 1.0%. NCI Lifetime model risk: 9.6%. Prior Study Comparison: 05/01/2019 Bilateral Diagnostic Mammogram, [facility]. 05/01/2019 Right Diagnostic Ultrasound, [facility]. 08/04/2020 Bilateral Diagnostic Mammogram, [facility]. 08/04/2020 Right Diagnostic Ultrasound, [facility]. 11/21/2022 Bilateral MG 3D screening mammo w/cad, [facility]. 11/28/2022 Bilateral MG 3D work up w/cad WEN, [facility]. 11/28/2022 Bilateral US breast workup limited WEN, [facility]. Tissue Density: The breast tissue is heterogeneously dense. This may lower the sensitivity of mammography. Findings: Analyzed By CAD. Chronic nodularity is unchanged. No evidence of mass or distortion. No suspicious microcalcifications. Overall Assessment: Benign, BI-RAD 2 Management: Screening Mammogram of both breasts in 4 months. . Results were given to the patient verbally at the time of exam. Patient should continue monthly self-breast exams. A clinical breast exam by your physician is recommended on an annual basis. This exam should not preclude additional follow-up of suspicious palpable abnormalities. Note on Rolanda scores and lifetime risk: 1. A Rolanda score greater than 3% is considered moderate risk. If this is the case, consider specialist referral to assess eligibility for a risk reducing agent. 2. If overall lifetime risk for the development of breast cancer is 20% or higher, the patient may qualify for future screening with alternating mammogram and breast MRI. Electronically signed and approved by: Remberto De La Cruz M.D. Radiologis
== END | disposition home or self-care (01) ==
LOC: RADMAMWWP 11:01
PROVIDERS: ATTEND Family Medicine
DX: R92.333 Mammographic heterogeneous density, bilateral breasts (principal); Z92.0 Personal history of contraception
CPT/HCPCS: 77062; 77066

== ENCOUNTER → 2023-09-25 | Outpatient (CLI) | payer BC ==
[2023-09-25 16:55] LABS: Follicle Stimulating Hormone 5.7 mIU/mL; Luteinizing Hormone 6.5 mIU/mL
[2023-09-28 21:09] LABS: Peanut IgG <2.0 mcg/mL (<2.0); Soybean IgG <2.0 mcg/mL (<2.0)
[2023-09-28 21:10] LABS: Cow's Milk IgG 23.1 mcg/mL (<2.0); Tomato IgG 2.3 mcg/mL (<2.0)
[2023-09-28 21:11] LABS: Corn IgG <2.0 mcg/mL (<2.0); Potato IgG <2.0 mcg/mL (<2.0); Wheat IgG 3.5 mcg/mL (<2.0)
== END | disposition home or self-care (01) ==
LOC: LABWHC1 07:34
PROVIDERS: ATTEND Family Medicine
DX: K21.9 Gastro-esophageal reflux disease without esophagitis (principal); R53.82 Chronic fatigue, unspecified
CPT/HCPCS: 36415; 82533; 82626; 83001; 83002; 83525; 83690; 86001

== ENCOUNTER → 2023-09-25 | Outpatient (CLI) | payer BC | END | disposition home or self-care (01) | LOC: LABWHC1 15:37 | PROVIDERS: ATTEND Family Medicine | DX: R53.82 Chronic fatigue, unspecified (principal) ==

== ENCOUNTER → 2024-02-03 | Outpatient (CLI) | payer BC ==
[2024-02-03 19:25] LABS: EBV-EA (IgG) 4.7 AI; EBV-EBNA(IgG) >8.0; EBV-VCA (IgG) >8.0 AI; EBV-VCA (IgM) <0.2 AI
[2024-02-04 12:41] LABS: Candida albicans IgE Class CLASS 0
--- NOTE | 2024-02-05 13:44 | MM ---
Reason for Exam: Screening (asymptomatic). Last screening mammogram was performed 7 month(s) ago. Patient History: Menarche at age 12. First Full-Term at age 20. Patient used Hormonal Contraceptives for 4 years. Excisional Biopsy on the Right side. Last menstrual period: 01/20/2024 Risk Values: Rolanda 5 year model risk: 1.0%. NCI Lifetime model risk: 9.4%. Prior Study Comparison: 11/21/2022 Bilateral MG 3D screening mammo w/cad, [facility]. 11/28/2022 Bilateral MG 3D work up w/cad [facility], [facility]. 07/11/2023 Bilateral MG 3D diag mammo w/cad [facility], [facility]. Tissue Density: The breasts are heterogeneously dense, which may obscure small masses. Findings: Analyzed By CAD. Right breast: There is no suspicious group of microcalcifications or new suspicious mass. Left breast: There is no suspicious group of microcalcifications or new suspicious mass. Overall Assessment: Negative, BI-RAD 1 Management: Screening Mammogram of both breasts in [address] [facility] will attempt to contact patient to return for supplemental views and ultrasound if indicated. Patient should continue monthly self-breast exams. A clinical breast exam by your physician is recommended on an annual basis. This exam should not preclude additional follow-up of suspicious palpable abnormalities. Note on Rolanda scores and lifetime risk: 1. A Rolanda score greater than 3% is considered moderate risk. If this is the case, consider specialist referral to assess eligibility for a risk reducing agent. 2. If overall lifetime risk for the development of breast cancer is 20% or higher, the patient may qualify for future screening with alternating mammogram and breast MRI. Electronically signed and approved by: Brady Armando DO
== END | disposition home or self-care (01) ==
LOC: RADMAMWWP 11:10
PROVIDERS: ATTEND Family Medicine
DX: Z12.31 Encounter for screening mammogram for malignant neoplasm of breast (principal); R53.83 Other fatigue; E27.49 Other adrenocortical insufficiency; K21.9 Gastro-esophageal reflux disease without esophagitis
CPT/HCPCS: 77063; 77067; 82306; 82533; 82607; 82627; 82746; 86003; 86663; 86664; 86665

== ENCOUNTER → 2024-06-03 | Outpatient (CLI) | payer BC ==
[2024-06-03 15:34] LABS: T4, Free (Free Thyroxine) 1.26 ng/dL (0.80-1.80)
== END | disposition home or self-care (01) ==
LOC: LABWHC1 08:02
PROVIDERS: ATTEND Family Medicine
DX: E55.9 Vitamin D deficiency, unspecified (principal); E07.9 Disorder of thyroid, unspecified; R53.83 Other fatigue
CPT/HCPCS: 36415; 82306; 82533; 82626; 84439; 84443; 84481

== ENCOUNTER 2024-10-06 06:38 | Day surgery (SDC) | payer BC ==
[~2024-10-06 06:38] MED LIST: LACTATED RINGERS 1,000 ML IV SCH; LIDOCAINE 1% (10MG/ML) FOR IV START INTRADERMA PRN
[2024-10-06 06:58] VITALS: TEMP 97.6
[2024-10-06] MEDS: LACTATED RINGERS 1,000 ML IV ONE (07:08)
[2024-10-06 07:15] LABS: Glucose,Whole Blood 100 mg/dL (70-110)
[2024-10-06] MEDS ORDERED: LIDOCAINE 2% (PF) 20 MG/ML 5 ML VIAL ONE (07:30)
[2024-10-06] MEDS ORDERED: PROPOFOL 10 MG/ML 20 ML VIAL IV ONE (07:30)
--- NOTE | 2024-10-06 07:38 | P.GSHP ---
History of Present Illness H&P Date: 10/06/24 Chief Complaint: GERD, screening 49-year-old female here for upper and lower endoscopy. Patient with history of chronic epigastric discomfort. 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 Was told in the past she had a hiatal hernia on prior EGD. Her last CAT scan was 3 years ago and appeared fairly normal as it pertains to the hiatus. No bowel complaints. Family history of colon cancer in a grandfather. Never had a colonoscopy before Past Medical History Past Medical History: GERD/Reflux, Thyroid Disorder Additional Past Medical History / Comment(s): hx pancreatitis, sphincter of oddi dysfunction, hx hypoglycemia, seasonal allergies, low adrenal function History of Any Multi-Drug Resistant Organisms: None Reported Past Surgical History: Cholecystectomy, Tubal Ligation Additional Past Surgical History / Comment(s): surgery on pancreas(sphincter of Oddi), deviated septum/removal of cysts, breast biopsy, [facility] PROCEDURE 07/19/15 Past Anesthesia/Blood Transfusion Reactions: Motion Sickness Smoking Status: Former smoker Medications and Allergies Home Medications Medication Instructions Recorded Confirmed Type Levothyroxine Sodium [Synthroid] 112 mcg PO DAILY 07/13/15 10/06/24 History Adrenal Support 1 dose PO DAILY 10/05/24 10/06/24 History L.acidoph,Paracasei, B.lactis 1 each PO DAILY 10/05/24 10/06/24 History [Probiotic] Multivitamins, Thera [Multivitamin 1 tab PO DAILY 10/05/24 10/06/24 History (formulary)] Omeprazole 40 mg PO DAILY PRN 10/05/24 10/06/24 History Vitamin C 1 dose PO DAILY 10/05/24 10/06/24 History Vitamin D3 1 dose PO DAILY 10/05/24 10/06/24 History Allergies Allergy/AdvReac Type Severity Reaction Status Date / Time meperidine HCl [From Demerol] Allergy Rash/Hives Verified 10/06/24 06:51 milk Allergy Unknown Verified 10/06/24 06:51 morphine Allergy Unknown Verified 10/06/24 06:51 Penicillins Allergy throat Verified 10/06/24 06:51 Swelling Surgical - Exam Vital Signs Temp Pulse Resp BP Pulse Ox 97.6 F 74 16 130/77 97 10/06/24 06:56 10/06/24 06:56 10/06/24 06:56 10/06/24 06:56 10/06/24 06:56 Physical exam: General: Well-developed, well-nourished HEENT: Normocephalic, sclerae nonicteric Abdomen: Nontender, nondistended Extremities: No edema Neuro: Alert and oriented Assessment and Plan (1) GERD (gastroesophageal reflux disease) Narrative/Plan: Will proceed with upper and lower endoscopy. Current Visit: Yes Status: Acute Code(s): K21.9 - GASTRO-ESOPHAGEAL REFLUX DISEASE WITHOUT ESOPHAGITIS SNOMED Code(s): 873847280
--- NOTE | 2024-10-06 08:04 | P.PCN ---
Date of Procedure: 10/06/24 Procedure(s) Performed: PREOPERATIVE DIAGNOSIS: GERD, screening POSTOPERATIVE DIAGNOSIS: Gastritis, small gastric polyps, small hiatal hernia, minimal distal esophagitis, colon polyps PROCEDURE: 1. EGD with biopsy 2. Colonoscopy with snare polypectomy and clip ANESTHESIA: [facility] [place] SURGEON: Jeff Gan M.D. SPECIMENS: Antrum, gastric polyp, colon polyps ENDOSCOPIC PROCEDURE: The patient was on the endoscopy table in the left decubitus position. The Olympus gastroscope was inserted into the oropharynx a nd passed under direct visualization to the region of the third portion of the duodenum. From that point the scope was slowly withdrawn inspecting all surfaces carefully. There were no neoplastic inflammatory or polypoid lesions throughout the duodenum. The pylorus was widely patent. The stomach was carefully inspected. There was gastritis present. There was some retained small amount of food particles in the stomach and I do question whether patient may have some degree of gastroparesis causing some of her bloating symptoms. A biopsy of the antrum took place to rule out H. pylori. Retroflexion revealed a small hiatal hernia. This is only about 1 cm in size or less. Patient had a few small polyps in the fundus and 1 of these was removed. These were all 2 to 3 mm in size. At the distal esophagus there was a single small linear erosion measuring a few millimeters in length. The remainder the esophagus appeared normal. The patient was kept on the endoscopy table in the left decubitus position. The Olympus colonoscope was inserted into the anus and passed under direct visualization to the base of the cecum. The appendiceal orifice was visualized. From that point the scope was slowly withdrawn inspecting all surfaces carefully. There was a small 5 mm polyp at the base of the cecum. This was removed using the snare with cautery technique. A single clip was deployed given the appearance that it may be prone to bleeding. The ascending colon appeared normal. In the transverse colon a small polyp was removed using the snare with cautery technique. The remainder of the transverse and descending colon was normal however a small polyp in the sigmoid was removed using the snare without cautery technique. The remainder of the sigmoid and rectum was normal. There was no visible diverticulosis. Digital rectal examination was normal. The patient was taken to the recovery room in stable condition per anesthesia guidelines. RECOMMENDATIONS: Await biopsy results. Continue antiacids. Anticipate repeat colonoscopy 5 years.
[2024-10-06 08:28] VITALS: BP 114/79; PULSE 69; RESP 16
== END 2024-10-06 08:48 | disposition home or self-care (01) ==
LOC: ORWHC2ENDO 06:38
PROVIDERS: ATTEND Surgery
DX: Z12.11 Encounter for screening for malignant neoplasm of colon (principal); K29.50 Unspecified chronic gastritis without bleeding; D12.3 Benign neoplasm of transverse colon; D12.0 Benign neoplasm of cecum; K31.7 Polyp of stomach and duodenum; K44.9 Diaphragmatic hernia without obstruction or gangrene; E07.9 Disorder of thyroid, unspecified; K21.00 Gastro-esophageal reflux disease with esophagitis, without bleeding; Z87.19 Personal history of other diseases of the digestive system; Z90.49 Acquired absence of other specified parts of digestive tract; Z80.0 Family history of malignant neoplasm of digestive organs; Z98.51 Tubal ligation status; Z87.891 Personal history of nicotine dependence; Z88.5 Allergy status to narcotic agent; Z88.0 Allergy status to penicillin; Z79.890 Hormone replacement therapy; Z79.899 Other long term (current) drug therapy
CPT/HCPCS: 81025; 88305; 45385; 43239; J2704; J2003

== ENCOUNTER → 2024-11-06 | Outpatient (CLI) | payer BC | END | disposition home or self-care (01) | LOC: LABWHC1 15:34 | PROVIDERS: ATTEND Family Medicine | DX: E27.40 Unspecified adrenocortical insufficiency (principal) | CPT/HCPCS: 36415; 82533; 82626 ==